=== PATIENT | male | born 1945 | race Caucasian/White ===

== ENCOUNTER → 2023-11-30 10:59 | Outpatient (REF) | payer MEDICARE, OTHER, SELFPAY ==
[2023-11-30 12:01] LABS: % Basophils 0.4 % (0-2); % Eosinophils 0.8 % (0-6); % Immature Granulocytes 0.6 % (0-0.5); % Lymphocytes 24.6 % (20.5-51.1); % Monocytes 5.6 % (1.7-9.3); Absolute Lymphocytes 1.3 10^3/uL (1.2-3.4); Absolute Monocytes 0.3 10^3/uL (0.1-0.6); Absolute Neutrophils 3.5 10^3/uL (1.4-6.5); Hematocrit 37.3 % (39.0-52.0); Hemoglobin 12.6 g/dL (13.0-18.0); Mean Corp Hgb Conc. 33.8 g/dL (33.0-37.0); Mean Corpuscular Volume 88.8 fL (80.0-94.0); Mean Platelet Volume 11.6 fL (7.4-10.4); Nucleated Red Blood Cells % 0 % (-); Platelet Count 103 10^3/uL (130-400); Red Cell Dist. Width 11.9 % (11.5-14.5); White Blood Cell Count 5.2 10^3/uL (4.8-10.8)
== END ==
LOC: REG 10:59
PROVIDERS: ATTENDING PHYSICIAN Specialist; FAMILY PHYSICIAN Internal Medicine
DX: Z01.818 Encounter for other preprocedural examination (principal)
CPT/HCPCS: 36415; 85025

== ENCOUNTER 2023-12-03 06:23 | Day surgery (SDC) | payer MEDICARE, OTHER, SELFPAY ==
[2023-11-15 12:15] VITALS: BMI 23.8
[2023-11-15 14:25] LABS: Hematocrit 37.4 % (39.0-52.0); Hemoglobin 12.7 g/dL (13.0-18.0); Mean Corpuscular Hgb 30.3 pg (27.0-31.0); Mean Corpuscular Volume 89.3 fL (80.0-94.0); Mean Platelet Volume 12.3 fL (7.4-10.4); Platelet Count 90 10^3/uL (130-400); Red Blood Cell Count 4.19 10^6/uL (4.70-6.10); Red Cell Dist. Width 11.9 % (11.5-14.5); White Blood Cell Count 5.3 10^3/uL (4.8-10.8)
[2023-11-15 14:44] LABS: ALT (SGPT) 31 U/L (0-50); AST (SGOT) 25 U/L (17-59); Albumin 3.8 g/dl (3.5-5.0); Alkaline Phosphatase 157 U/L (38-126); Blood Urea Nitrogen 19 mg/dl (9-20); Calcium 9.2 mg/dl (8.4-10.2); Carbon Dioxide 26 mmol/L (22-30); Chloride 106 mmol/L (98-107); Estimated Creatinine Clearance 35 ml/min; Glucose 116 mg/dl (70-99); Potassium 4.3 mmol/L (3.5-5.1); Sodium 141 mmol/L (135-145); Total Bilirubin 0.5 mg/dl (0.2-1.3); Total Protein 6.2 g/dl (6.3-8.2); eGFR 43.56
--- NOTE | 2023-11-20 11:12 | VNURNOTE ---
Patient is scheduled for an elective right MEGA on 12/03/23. He is a same day surgery
Spoke to patient and spouse Shanta on phone. He lives in a [place] with one step to enter. He has a walker and spouse is aware to bring it on the day of surgery when he is discharged. Shanta will be driving patient home after surgery.
Reviewed he will have VN services the day after he gets home. Explained role of SN and PT in home. Homebound policy explained. Patient has 1 cat. Patient will go to outpatient therapy at [facility] and has appointment set up.
Patient selects [facility] for patient�s homecare needs. Referral completed in [facility]
PCP is Dr. Hakan Patricio RX: is Espinoza
--- NOTE | 2023-11-23 17:01 | PTCARENOTE ---
GFR 43.56 collected on 11/15/23: Nella at Dr Kennedy office notified
[2023-11-27 09:46] VITALS: BMI 23.8
[2023-12-03] VITALS (15 sets, daily range): BP systolic 103–149; BP diastolic 51–80; PULSE 63; O2SAT 98
[2023-12-03] MEDS: NORMOSOL-R/PLASMALYTE-A 1000 IV (08:55)
[2023-12-03] MEDS: TYLENOL 650 MG PO (09:02)
[2023-12-03] MEDS: CELEBREX 200 MG PO (09:02)
[2023-12-03 09:28] LABS: Hematocrit 36.5 % (39.0-52.0); Hemoglobin 12.4 g/dL (13.0-18.0); Mean Corpuscular Hgb 29.3 pg (27.0-31.0); Mean Corpuscular Volume 86.3 fL (80.0-94.0); Mean Platelet Volume 10.7 fL (7.4-10.4); Platelet Count 108 10^3/uL (130-400); Red Blood Cell Count 4.23 10^6/uL (4.70-6.10); White Blood Cell Count 5.7 10^3/uL (4.8-10.8)
--- NOTE | 2023-12-03 09:37 | PTCARENOTE ---
Drs. Kennedy and Román were both notified of CBC results via tiger text.
[2023-12-03] MEDS: ROXICODONE 5 MG PO (14:46)
[2023-12-03] MEDS: ANCEF 5 IV (15:05)
[2023-12-03] MEDS: FLOMAX 0.8 MG PO (16:39)
--- NOTE | 2023-12-03 16:50 | W.PN.UPDATE ---
Update Note
Progress Note Update
78-year-old patient with history of urinary retention who takes alfuzosin 10 mg twice daily. (He has been previously informed he may take a double dose when needed). Patient is currently in same-day surgery and has been unable to void since his
hip replacement performed today at 11:24 AM. I have been informed by nursing that he has been bladder scanned for 575 mL of urine. I suspect it is likely he will have to be catheterized and sent home with a Alfredo in place for bladder rest.
Patient would like to try to void. I have discussed this medication with pharmacy, and we have given him 0.8 mg of Flomax now. If he is unable to void within the hour, he should be catheterized and sent home. He is to call our office tomorrow for
further instructions about catheter removal.
== END 2023-12-03 17:20 | disposition home or self-care (01) ==
LOC: SDS 06:23
PROVIDERS: ATTENDING PHYSICIAN Specialist; FAMILY PHYSICIAN Internal Medicine; OTHER PHYSICIAN Internal Medicine Cardiovascular Disease
DX: M16.11 Unilateral primary osteoarthritis, right hip (principal); N18.32 Chronic kidney disease, stage 3b; D69.6 Thrombocytopenia, unspecified; C25.9 Malignant neoplasm of pancreas, unspecified; I25.10 Atherosclerotic heart disease of native coronary artery without angina pectoris; I82.401 Acute embolism and thrombosis of unspecified deep veins of right lower extremity; I10 Essential (primary) hypertension
CPT/HCPCS: 27130; 36415; 73502; 80053; 83036; 85027; 87070; 97162; C1713; C1776